=== PATIENT | male | born 1950 | race Caucasian/White ===

== ENCOUNTER 2018-11-20 05:23 | Observation (INO) | payer MEDICARE ==
[~2018-11-20] VITALS: Ht 170.2 cm; Wt 61.0 kg
[2018-11-20] MEDS ORDERED: ATOR40TA78 PO (05:38)
[2018-11-20] MEDS ORDERED: [UNRECOGNIZED DRUG - CODE] PO (05:42)
[2018-11-20] MEDS ORDERED: EMTR1TAB8 PO (05:42)
--- NOTE | 2018-11-20 05:42 | NUR ---
assessment made. ERP at bedside. patient c/o left sided chest pain radiates to left arm x 1 month. worse today.
[2018-11-20] MEDS ORDERED: NITROGLYCERIN SINGLE TAB 0.4 MG SL ONE (05:46)
--- NOTE | 2018-11-20 05:50 | NUR ---
repeat EKG done. Nitro given. technical illustrations map inker at bedside.
[2018-11-20] MEDS ORDERED: NITROGLYCERIN SINGLE TAB 0.4 MG SL PRN (06:00)
[2018-11-20] MEDS ORDERED: SODIUM CHLORIDE FLUSH 10ML SYR IVF ONE (06:00)
[2018-11-20 06:12] LABS: BASOPHILS # (AUTO) 0.03 x10^3/uL (0-0.1); BASOPHILS % (AUTO) 0 % (0-1); EOSINOPHILS # (AUTO) 0.03 x10^3/uL (0-0.4); EOSINOPHILS % (AUTO) 0 % (1-7); LYMPHOCYTES # (AUTO) 0.96 x10^3/uL (1-3.4); LYMPHOCYTES % (AUTO) 13 % (22-44); MD NO; MEAN CORPUSCULAR HEMOGLOBIN 32.2 pg (27.5-34.5); MEAN CORPUSCULAR HGB CONC 34.8 g/dL (33.2-36.2); MEAN CORPUSCULAR VOLUME 92.6 fL (81-97); MONOCYTES # (AUTO) 0.24 x10^3/uL (0.2-0.8); MONOCYTES % (AUTO) 3 % (2-9); NEUTROPHILS # (AUTO) 6.09 x10^3/uL (1.8-6.8); NEUTROPHILS % (AUTO) 83 % (42-75); PLATELET COUNT 291 x10^3/uL (130-400); RED CELL DISTRIBUTION WIDTH 12.8 % (9.4-14.8)
[2018-11-20 06:26] LABS: ALBUMIN 4.7 g/dL (3.4-5.0); ANION GAP 10 mmol/L (5-15); CALCIUM 9.2 mg/dL (8.5-10.1); CHLORIDE 107 mmol/L (98-107)
[2018-11-20 06:32] LABS: CREATININE 0.69 mg/dL (0.7-1.3); TROPONIN I < 0.015 ng/mL (0.000-0.045)
[2018-11-20] MEDS ORDERED: METOPROLOL TARTRATE 50 MG TABLET ONE (06:54)
--- NOTE | 2018-11-20 06:59 | NUR ---
Pt rates pain as 6/10 L sd chest radiating down L arm. "Feels like it's on fire". Remains hypertensive, lopressor po given. Pt updated by Dr. Negrete that he will be admitted. Pt appears very anxious, rolling around on bed, unable to sit still. Ativan offered & accepted.
[2018-11-20] MEDS ORDERED: METOPROLOL TARTRATE 50 MG TABLET PO ONE (07:00)
[2018-11-20] MEDS ORDERED: LORazepam 1MG TABLET ONE (07:09)
[2018-11-20] MEDS ORDERED: LORazepam 1MG TABLET PO ONE (07:30)
--- NOTE | 2018-11-20 07:30 | NUR ---
NSL est, pt reports he is now pain free. Will continue to monitor BP.
--- NOTE | 2018-11-20 07:52 | NUR ---
Room assigned. Waiting automation/controls manager from floor for report.
--- NOTE | 2018-11-20 08:00 | NUR ---
Report to [facility]. Pt updated & prepared for transport upstairs.
[2018-11-20 08:56] VITALS: BP 202/95
[2018-11-20 09:00] VITALS: BP 202/95
[2018-11-20] MEDS ORDERED: MORPHINE SULFATE 4 MG/ML, 1ML IVPush PRN (10:30)
[2018-11-20] MEDS ORDERED: hydrALAzine 20 MG/ML, 1ML IV PRN (10:30)
[2018-11-20] MEDS ORDERED: REGADENOSON 0.4 MG/5 ML SYRINGE ONE (11:00)
[2018-11-20 11:06] VITALS: BP 138/78
[2018-11-20 11:26] LABS: TROPONIN I < 0.015 ng/mL (0.000-0.045)
[2018-11-20] MEDS ORDERED: ACETAMINOPHEN 325 MG TABLET PO PRN (11:30)
[2018-11-20] MEDS ORDERED: NITROGLYCERIN 0.4 MG BOTTLE (25 TABS) SL PRN (11:30)
[2018-11-20] MEDS ORDERED: ENALAPRILAT 1.25 MG/ML, 2ML IVPush PRN (11:30)
[2018-11-20] MEDS ORDERED: ONDANSETRON 2MG/ML, 2ML IVPush PRN (11:30)
[2018-11-20] MEDS ORDERED: BISACODYL 10 MG SUPP PR PRN (11:30)
[2018-11-20] MEDS ORDERED: BACLOFEN 10 MG TABLET PO PRN (11:30)
[2018-11-20] MEDS ORDERED: PROMETHAZINE 25 MG/ML, 1ML IM PRN (11:30)
[2018-11-20] MEDS ORDERED: POTASSIUM CHLORIDE 20 MEQ TAB.ER.PRT PO ONE (11:30)
[2018-11-20] MEDS ORDERED: morphine SULFATE 10 MG/ML, 1ML IVPush PRN (11:30)
[2018-11-20] MEDS ORDERED: POLYETHYLENE GLYCOL 17 GM PACKET PO PRN (11:30)
[2018-11-20] MEDS ORDERED: DOCUSATE 100 MG CAPSULE PO PRN (11:30)
[2018-11-20] MEDS ORDERED: ONDANSETRON ODT 4 MG PO PRN (11:30)
[2018-11-20] MEDS: HEPARIN 5,000 UNITS/ML, 1ML SQ SCH ×2 (12:56→20:37)
[2018-11-20] MEDS: SODIUM CHLORIDE 0.9% 1,000 ML IV SCH ×2 (12:56→21:04)
[2018-11-20] MEDS: LISINOPRIL 10 MG TABLET PO SCH (12:56)
[2018-11-20 13:29] LABS: FREE T4 (FREE THYROXINE) 0.89 ng/dL (0.76-1.46); TROPONIN I < 0.015 ng/mL (0.000-0.045)
[2018-11-20 14:16] VITALS: BP 124/74
[2018-11-20 14:36] LABS: HEMOGLOBIN A1C 5.2 % (4.2-6.3)
[2018-11-20] MEDS ORDERED: CYCL-259 PO (16:56)
[2018-11-20 18:47] VITALS: BP 126/75
[2018-11-20] MEDS ORDERED: LORazepam 1MG TABLET PO PRN (20:30)
[2018-11-20] MEDS ORDERED: ATORVASTATIN 80 MG TABLET PO SCH (21:00)
[2018-11-21 03:27] VITALS: BP 111/64
[2018-11-21] MEDS: HEPARIN 5,000 UNITS/ML, 1ML SQ SCH (05:00)
[2018-11-21 05:18] LABS: BASOPHILS # (AUTO) 0.04 x10^3/uL (0-0.1); BASOPHILS % (AUTO) 1 % (0-1); EOSINOPHILS # (AUTO) 0.04 x10^3/uL (0-0.4); EOSINOPHILS % (AUTO) 1 % (1-7); LYMPHOCYTES # (AUTO) 1.66 x10^3/uL (1-3.4); LYMPHOCYTES % (AUTO) 27 % (22-44); MD NO; MEAN CORPUSCULAR HEMOGLOBIN 32.1 pg (27.5-34.5); MEAN CORPUSCULAR HGB CONC 34.3 g/dL (33.2-36.2); MEAN CORPUSCULAR VOLUME 93.8 fL (81-97); MONOCYTES # (AUTO) 0.41 x10^3/uL (0.2-0.8); MONOCYTES % (AUTO) 7 % (2-9); NEUTROPHILS # (AUTO) 3.99 x10^3/uL (1.8-6.8); NEUTROPHILS % (AUTO) 65 % (42-75); PLATELET COUNT 267 x10^3/uL (130-400); RED BLOOD COUNT 4.58 x10^6/uL (4.38-5.82); RED CELL DISTRIBUTION WIDTH 13.4 % (9.4-14.8)
[2018-11-21 05:32] LABS: CHLORIDE 109 mmol/L (98-107)
[2018-11-21 05:39] LABS: ALANINE AMINOTRANSFERASE 22 U/L (12-78); ALKALINE PHOSPHATASE 96 U/L (45-117); ANION GAP 7 mmol/L (5-15); BILIRUBIN,TOTAL 0.4 mg/dL (0.2-1.0); CALCIUM 9.3 mg/dL (8.5-10.1); CHOL/HDL RATIO 2.9; CHOLESTEROL, TOTAL 163 mg/dL (140-239); CREATININE 0.76 mg/dL (0.7-1.3); HDL CHOL % 35 % (26-37); HDL CHOLESTEROL (DIRECT) 57 mg/dL (40-60); LDL CHOLESTEROL,CALCULATED 73 mg/dL (54-169); LDL/HDL RATIO 1.3 (0.5-3.0); TOTAL PROTEIN 7.3 g/dL (6.4-8.2); TRIGLYCERIDES 166 mg/dL (50-200); VLDL CHOLESTEROL 33 mg/dL (0-25)
[2018-11-21] MEDS ORDERED: ASPIRIN 325 MG TABLET EC PO SCH (06:00)
[2018-11-21 06:43] VITALS: BP 113/67
[2018-11-21] MEDS: LISINOPRIL 10 MG TABLET PO SCH (07:51)
[2018-11-21] MEDS ORDERED: LISI5TAB7 PO (10:28)
== END 2018-11-21 12:30 | disposition home or self-care (01) ==
LOC: ED 06:59 → INTOOBSV 07:00 → EDIP 07:00 → ED 07:43 → 5SO 08:15 → DCLOUNGE 11-21 12:24
PROVIDERS: ADMIT Internal Medicine; ATTEND Internal Medicine
DX: R07.9 Chest pain, unspecified (principal); I10 Essential (primary) hypertension; I16.0 Hypertensive urgency; E78.5 Hyperlipidemia, unspecified; E87.6 Hypokalemia; F12.10 Cannabis abuse, uncomplicated; Z82.49 Family history of ischemic heart disease and other diseases of the circulatory system
CPT/HCPCS: 36415; 71045; 78452; 80048; 80053; 80061; 82040; 83036; 83735; 84439; 84443; 84484; 85025; 93005; 93017; 93306; 96372; 96374; 99284; A9502; C9898; G0378; J0360; J1644; J2785; J7030

== ENCOUNTER 2019-09-30 18:08 | Inpatient (IN) | payer OTHER ==
[~2019-09-30] VITALS: Ht 170.2 cm; Wt 64.6 kg
[2019-09-30] MEDS: CEFAZOLIN PMX 2GM/50ML 50 ML IVPB SCH ×3 (05:30→23:34)
[~2019-09-30 18:08] MED LIST: ATOR40TA78 PO; CYCL-259 PO; EMTR1TAB8 PO; LISI5TAB7 PO; [UNRECOGNIZED DRUG - CODE] PO
[2019-09-30 18:38] LABS: BASOPHILS # (AUTO) 0.05 x10^3/uL (0-0.1); BASOPHILS % (AUTO) 1 % (0-1); EOSINOPHILS % (AUTO) 3 % (1-7); LYMPHOCYTES # (AUTO) 1.38 x10^3/uL (1-3.4); LYMPHOCYTES % (AUTO) 22 % (22-44); MD NO; MEAN CORPUSCULAR HEMOGLOBIN 32.1 pg (27.5-34.5); MEAN CORPUSCULAR HGB CONC 34.4 g/dL (33.2-36.2); MEAN CORPUSCULAR VOLUME 93.2 fL (81-97); MONOCYTES # (AUTO) 0.46 x10^3/uL (0.2-0.8); MONOCYTES % (AUTO) 8 % (2-9); NEUTROPHILS # (AUTO) 4.07 x10^3/uL (1.8-6.8); NEUTROPHILS % (AUTO) 66 % (42-75); PLATELET COUNT 303 x10^3/uL (130-400); RED BLOOD COUNT 4.59 x10^6/uL (4.38-5.82); RED CELL DISTRIBUTION WIDTH 13.1 % (9.4-14.8)
[2019-09-30 18:48] LABS: PROTHROMBIN TIME 10.6 Seconds (9.6-11.5)
[2019-09-30 18:57] LABS: ALBUMIN 4.4 g/dL (3.4-5.0); ANION GAP 8 mmol/L (5-15); CALCIUM 9.2 mg/dL (8.5-10.1); CHLORIDE 108 mmol/L (98-107); CREATININE 0.87 mg/dL (0.7-1.3)
[2019-09-30 19:00] LABS: TROPONIN I < 0.015 ng/mL (0.000-0.045)
[2019-09-30] MEDS ORDERED: THROMBIN 5,000 UNIT VIAL TP ONE ×2 (20:36→22:07)
[2019-09-30] MEDS ORDERED: BUPIVACAINE/PF-EPI 0.5% 1:200K ONE (20:36)
[2019-09-30] MEDS ORDERED: BACITRACIN 50,000 UNIT ONE (20:37)
[2019-09-30] MEDS ORDERED: FENTANYL PF 250 MCG/5ML ONE (20:44)
[2019-09-30] MEDS ORDERED: morphine SULFATE 10 MG/ML, 1ML IVPush PRN (21:00)
[2019-09-30] MEDS ORDERED: OXYcodone 5 MG/5 ML ORAL.SOL UDC PO PRN (21:00)
[2019-09-30] MEDS ORDERED: LABETALOL 5MG/ML, 20ML IV PRN (21:00)
[2019-09-30] MEDS ORDERED: FENTANYL PF 100 MCG/2ML IV PRN (21:00)
[2019-09-30] MEDS ORDERED: hydrALAzine 20 MG/ML, 1ML IVPush PRN (21:00)
[2019-09-30] MEDS ORDERED: hydrALAzine 20 MG/ML, 1ML IV PRN (21:00)
[2019-09-30] MEDS ORDERED: ONDANSETRON 2MG/ML, 2ML IV PRN (21:00)
[2019-09-30] MEDS ORDERED: HYDROmorphone 2 MG/ML, 1ML IVPush PRN (21:00)
[2019-09-30] MEDS ORDERED: ACETAMINOPHEN 325 MG TABLET PO PRN ×2 (21:00→21:30)
[2019-09-30] MEDS ORDERED: MORPHINE SULFATE 4 MG/ML, 1ML IVPush PRN (21:00)
[2019-09-30] MEDS ORDERED: ONDANSETRON 2MG/ML, 2ML IVPush PRN (21:00)
[2019-09-30] MEDS ORDERED: PHENYLEPHRINE 10 MG/ML ONE (21:08)
[2019-09-30] MEDS ORDERED: OXYcodone/APAP 5/325MG TABLET PO PRN (21:30)
[2019-09-30] MEDS ORDERED: MORPHINE SULFATE 4 MG/ML, 1ML IV PRN (21:30)
[2019-09-30] MEDS ORDERED: CEFAZOLIN 1,000 MG IV SCH (21:30)
[2019-09-30] MEDS ORDERED: NEOSTIGMINE 1 MG/ML, 10ML ONE (21:54)
[2019-09-30] MEDS ORDERED: CEFAZOLIN 1,000 MG ONE (21:54)
[2019-09-30] MEDS ORDERED: PROPOFOL 10 MG/ML, 20ML ONE (21:54)
[2019-09-30] MEDS ORDERED: GLYCOPYRROLATE 0.2MG/1ML, 5ML ONE (21:54)
[2019-09-30] MEDS ORDERED: ROCURONIUM 10MG/ML,5ML ONE (21:54)
[2019-09-30] MEDS ORDERED: BUPIVACAINE/PF-EPI 0.5% 1:200K INFIL ONE (22:06)
[2019-09-30] MEDS ORDERED: BACITRACIN 50,000 UNIT IM ONE (22:07)
[2019-09-30] MEDS: PLEASE ENTER HEIGHT AND WEIGHT MC SCH (22:30)
[2019-09-30] MEDS ORDERED: hydrALAzine 20 MG/ML, 1ML ONE (22:51)
[2019-09-30] MEDS: D5%-0.9% NACL+KCL 20MEQ 1,000 ML IV SCH (23:33)
[2019-10-01 00:15] VITALS: BP 114/65
[2019-10-01] MEDS ORDERED: OMNIPAQUE 350 MG/ML, 100ML BOTTLE ONE (02:25)
[2019-10-01 04:28] LABS: BASOPHILS # (AUTO) 0.04 x10^3/uL (0-0.1); BASOPHILS % (AUTO) 1 % (0-1); EOSINOPHILS # (AUTO) 0.06 x10^3/uL (0-0.4); EOSINOPHILS % (AUTO) 1 % (1-7); LYMPHOCYTES # (AUTO) 1.26 x10^3/uL (1-3.4); LYMPHOCYTES % (AUTO) 15 % (22-44); MD NO; MEAN CORPUSCULAR HEMOGLOBIN 31.8 pg (27.5-34.5); MEAN CORPUSCULAR HGB CONC 34.5 g/dL (33.2-36.2); MEAN CORPUSCULAR VOLUME 92.1 fL (81-97); MONOCYTES # (AUTO) 0.43 x10^3/uL (0.2-0.8); MONOCYTES % (AUTO) 5 % (2-9); NEUTROPHILS # (AUTO) 6.49 x10^3/uL (1.8-6.8); NEUTROPHILS % (AUTO) 78 % (42-75); PLATELET COUNT 270 x10^3/uL (130-400); RED BLOOD COUNT 4.17 x10^6/uL (4.38-5.82); RED CELL DISTRIBUTION WIDTH 13.1 % (9.4-14.8)
[2019-10-01 04:37] LABS: ANION GAP 8 mmol/L (5-15); CALCIUM 8.6 mg/dL (8.5-10.1); CHLORIDE 110 mmol/L (98-107); CREATININE 0.59 mg/dL (0.7-1.3)
[2019-10-01] MEDS: CEFAZOLIN PMX 2GM/50ML 50 ML IVPB SCH ×3 (05:23→21:55)
[2019-10-01] MEDS: PLEASE ENTER HEIGHT AND WEIGHT MC SCH (06:30)
[2019-10-01] MEDS: EMTRICITABINE/TENOFOVIR 200 MG/300 MG TABLET PO SCH (09:12)
[2019-10-01] MEDS: ZIDOVUDINE 100 MG CAPSULE PO SCH (09:12)
[2019-10-01] MEDS: CYCLOBENZAPRINE 10 MG TABLET PO SCH ×3 (09:12→21:55)
[2019-10-01] MEDS: LISINOPRIL 5 MG TABLET PO SCH (09:12)
[2019-10-01] MEDS: D5%-0.9% NACL+KCL 20MEQ 1,000 ML IV SCH (12:50)
[2019-10-01] MEDS: ATORVASTATIN 80 MG TABLET PO SCH (21:55)
[2019-10-02] MEDS: CEFAZOLIN PMX 2GM/50ML 50 ML IVPB SCH ×3 (05:31→21:39)
[2019-10-02] MEDS: LISINOPRIL 5 MG TABLET PO SCH (08:57)
[2019-10-02] MEDS: EMTRICITABINE/TENOFOVIR 200 MG/300 MG TABLET PO SCH (08:58)
[2019-10-02] MEDS: CYCLOBENZAPRINE 10 MG TABLET PO SCH ×3 (08:58→21:39)
[2019-10-02] MEDS: ZIDOVUDINE 100 MG CAPSULE PO SCH (08:58)
[2019-10-02] MEDS ORDERED: EMTR1TAB14 PO (09:28)
[2019-10-02] MEDS: ATORVASTATIN 80 MG TABLET PO SCH (21:39)
[2019-10-03 05:01] LABS: BASOPHILS # (AUTO) 0.07 x10^3/uL (0-0.1); BASOPHILS % (AUTO) 1 % (0-1); EOSINOPHILS # (AUTO) 0.35 x10^3/uL (0-0.4); EOSINOPHILS % (AUTO) 6 % (1-7); LYMPHOCYTES # (AUTO) 1.51 x10^3/uL (1-3.4); LYMPHOCYTES % (AUTO) 26 % (22-44); MD NO; MEAN CORPUSCULAR HEMOGLOBIN 31.5 pg (27.5-34.5); MEAN CORPUSCULAR HGB CONC 33.8 g/dL (33.2-36.2); MEAN CORPUSCULAR VOLUME 93.3 fL (81-97); MEAN PLATELET VOLUME 8.5 fL (7.4-10.4); MONOCYTES # (AUTO) 0.47 x10^3/uL (0.2-0.8); MONOCYTES % (AUTO) 8 % (2-9); NEUTROPHILS # (AUTO) 3.32 x10^3/uL (1.8-6.8); NEUTROPHILS % (AUTO) 58 % (42-75); PLATELET COUNT 276 x10^3/uL (130-400); RED BLOOD COUNT 4.33 x10^6/uL (4.38-5.82); RED CELL DISTRIBUTION WIDTH 12.6 % (9.4-14.8)
[2019-10-03 05:04] LABS: CHLORIDE 106 mmol/L (98-107)
[2019-10-03 05:14] LABS: ALANINE AMINOTRANSFERASE 15 U/L (12-78); ALBUMIN 3.6 g/dL (3.4-5.0); ALKALINE PHOSPHATASE 111 U/L (45-117); ANION GAP 7 mmol/L (5-15); BILIRUBIN,TOTAL 1.2 mg/dL (0.2-1.0); CREATININE 0.62 mg/dL (0.7-1.3); TOTAL PROTEIN 7.6 g/dL (6.4-8.2)
[2019-10-03] MEDS: CEFAZOLIN PMX 2GM/50ML 50 ML IVPB SCH ×2 (05:36→12:37)
[2019-10-03] MEDS ORDERED: POTASSIUM CHLORIDE 20 MEQ TAB.ER.PRT PO ONE (07:00)
[2019-10-03] MEDS ORDERED: EMTRICITABINE/TENOFOV ALAFENAM 200-25 TAB PO SCH (09:00)
[2019-10-03] MEDS: LISINOPRIL 5 MG TABLET PO SCH (09:16)
[2019-10-03] MEDS: CYCLOBENZAPRINE 10 MG TABLET PO SCH (09:16)
[2019-10-03] MEDS: ZIDOVUDINE 100 MG CAPSULE PO SCH (09:17)
[2019-10-03] MEDS ORDERED: CEPH-368 PO (13:19)
== END 2019-10-03 13:50 | disposition home or self-care (01) | DRG 25 ==
LOC: ED 19:39 → EDIP 20:50 → CCU 23:16
PROVIDERS: ADMIT Family Medicine; ATTEND Hospitalist
PROC: 00C43ZZ Extirpation of Matter from Intracranial Subdural Space, Percutaneous Approach (ICD-10-PCS; principal; 2019-09-30 21:00)
DX: I62.02 Nontraumatic subacute subdural hemorrhage (principal); G93.5 Compression of brain; G81.91 Hemiplegia, unspecified affecting right dominant side; E78.5 Hyperlipidemia, unspecified; I10 Essential (primary) hypertension; M50.321 Other cervical disc degeneration at C4-C5 level; M50.322 Other cervical disc degeneration at C5-C6 level; Z21 Asymptomatic human immunodeficiency virus [HIV] infection status; Z66 Do not resuscitate; Z91.14 Patient's other noncompliance with medication regimen
CPT/HCPCS: 36415; 70450; 70496; 70498; 80048; 80053; 80307; 82040; 82140; 82962; 83735; 84100; 84484; 85025; 85610; 85730; 87081; 93005; G0378; J0690; J2704; J2710; J3010; Q9967; 92523-GN; J0360; J2370; J3480